=== PATIENT | male | born 1990 | race Hispanic/Latino ===

== ENCOUNTER 2023-09-04 00:55 | Emergency (ER) | payer SELFPAY, OTHER ==
[2023-09-04] MEDS ORDERED: fentaNYL 50 mcg/mL 1 mL Vial ONE (01:21)
[2023-09-04 01:24] LABS: #Basophils 0.1 thou/uL (0.0-0.2); #Eosinphils 0.3 thou/uL (0.0-0.7); #Lymphocytes 1.5 thou/uL (1.20-3.40); #Monocytes 0.4 thou/uL (0.11-0.59); %Basophils 0.9 % (0.0-1.0); %Eosinophils 3.2 % (0.0-10.0); %Lymphocytes 16.4 % (21.0-51.0); %Monocytes 4.7 % (0.0-10.0); %Neutrophils 74.9 % (42.0-75.0); Hematocrit 44.5 % (42.0-52.0); Hemoglobin 14.3 g/dL (14.0-18.0); Mean Corpuscular HGB CONC 32.2 g/dL (32.0-36.0); Mean Corpuscular Hemoglobin 28.7 pg (27.0-31.0); Mean Corpuscular Volume 89.1 fl (78.0-98.0); Mean Platelet Volume 7.5 fL (7.4-10.4); Platelet Count 305 10x3/uL (130-400); RBC Distribution Width 11.4 % (11.5-14.5); White Blood Cell (WBC) Count 9.4 10x3/uL (4.8-10.8)
[2023-09-04 01:35] LABS: Prothrombin Time 13.1 sec (12.0-14.7)
[2023-09-04 01:36] LABS: PTT 27.4 sec (22.9-36.1)
[2023-09-04 01:41] LABS: Acetaminophen Less than 10 mcg/mL (10.0-30.0); Alcohol 92.2 mg/dL (Less than 10); Salicylate Less than 8.0 mg/dL (15.0-30.0)
[2023-09-04 01:43] LABS: ALT (SGPT) 24 U/L (8-55); AST (SGOT) 24 U/L (5-34); Albumin 4.4 g/dL (3.5-5.0); Alkaline Phosphatase 69 U/L (40-110); Anion Gap 17 mmol/L (10-20); BUN (Urea Nitrogen) 10 mg/dL (8.9-20.6); Bilirubin, Total 0.4 mg/dL (0.2-1.2); Calc. Creatinine Clearance 0 mL/min (70-130); Calcium 9.2 mg/dL (7.8-10.44); Carbon Dioxide 21 mmol/L (22-29); Chloride 106 mmol/L (98-107); Estimated GFR 119; Globulin 2.7 g/dL (2.4-3.5); Glucose 122 mg/dL (70-105); Potassium 3.8 mmol/L (3.5-5.1); Protein, Total 7.1 g/dL (6.0-8.3); Sodium 140 mmol/L (136-145)
[2023-09-04] MEDS ORDERED: Iopamidol 370 76% 100 ML VIAL ONE (09:00)
== END 2023-09-04 02:50 ==
LOC: NAV ERS 00:55
DX: S06.0X0A Concussion without loss of consciousness, initial encounter (principal); S50.811A Abrasion of right forearm, initial encounter; S60.811A Abrasion of right wrist, initial encounter; V89.2XXA Person injured in unspecified motor-vehicle accident, traffic, initial encounter; Z55.6 Problems related to health literacy
CPT/HCPCS: 70450; 71260; 72125; 74177; 80053; 80307; 85025; 85610; 85730; 93005; 96374; J3010; Q9967